=== PATIENT | male | born 1955 | race Caucasian/White ===

== ENCOUNTER → 2017-12-27 08:19 | Outpatient (CLI) | payer OTHER, SELFPAY ==
--- NOTE | 2017-12-27 08:19 | DT_ITS ---
This patient was seen during an EMR downtime December 20, 2017 - December 27, 2017. This patient may have a combination of paper and electronic documentation or all paper documentation. All documentation is viewable within the e-chart portion of [facility] for each patient visit.
[2017-12-27 12:33] LABS: Absolute Lymphocyte Count 1.88 X10^3/ul (0.83-4.51); Basophil# 0.01 X10^3/uL; Basophil% 0.2 % (0-1); Eosinophil# 0.22 X10^3/uL; Eosinophils% 3.3 % (0-5); Hematocrit 44.7 % (40-54); Hemoglobin 15.3 g/dl (13.0-16.5); Lymphocyte # 1.88 X10^3/ul (4.0); Lymphocyte % 28.4 % (19-41); Mean Corp Hgb Conc 34.2 g/gl (32-36); Mean Corpuscular Volume 90.7 fL (80-94); Mean Platelet Vol. 10.1 fl (6.2-12.0); Monocyte% 7.6 % (0-10); Neutrophil % 60.3 % (47-70); Platelet Count 160 K/mm3 (150-450); RBC Distribution Width CV 12.5 % (11.6-14.6); RBC Distribution Width SD 41.2 fl (35.1-43.9); Red Blood Count 4.93 M/mm3 (4.6-6.2); White Blood Count 6.6 K/mm3 (4.4-11.0)
[2017-12-27 12:37] LABS: Vitamin D,25 Hydroxy 22.6 ng/mL (29.95-100.01)
[2017-12-27 12:41] LABS: POSITIVE COUNT NO; POSITIVE DIFFERENTIAL NO; POSITIVE MORPHOLOGY NO
[2017-12-27 12:42] LABS: Erythrocyte Sedimentation Rate 13 mm/hr (0-20)
[2017-12-27 12:43] LABS: Anion Gap 10 (5-15); BUN 18 mg/dL (7-18); BUN/Creat Ratio 17.6 RATIO (10-20); CRP < 2.90 mg/L (0.0-3.0); Calcium,Total 9.1 mg/dL (8.5-10.1); Chloride 104 mmol/L (98-107); Creatinine, Serum 1.02 mg/dL (0.70-1.30); EST Glomerular Filtration Rate 79 mL/min (>60); Est Glom Filt Rate - Afr Amer 96 mL/min (>60); Glucose 120 mg/dL (74-106); Potassium 3.7 mmol/L (3.5-5.1); Rheumatoid Factor < 10.0 IU/mL (<15); Sodium Level 141 mmol/L (136-145); T4 Free Direct 1.02 ng/dL (0.76-1.46); Thyroid Stim Hormone (TSH) 1.21 uIU/mL (0.358-3.74)
[2017-12-31 16:10] LABS: Anti-Centromere B Ab <0.2 AI (0.0-0.9); Anti-Chromatin <0.2 AI (0.0-0.9); Anti-Jo <0.2 AI (0.0-0.9); Anti-Scleroderma-70 AB <0.2 AI (0.0-0.9); RNP Ab 5.7 AI (0.0-0.9); SJOGREN'S Anti-SS-A test < 0.2 AI (0.0-0.9); SJOGREN'S Anti-SS-B test < 0.2 AI (0.0-0.9); Smith Ab <0.2 AI (0.0-0.9)
[2017-12-31 18:30] LABS: Anti-dsDNA Ab <1 IU/mL (0-9)
[2018-01-01 14:17] LABS: CCP IgG Antibodies 4 units (0-19)
== END ==
PROVIDERS: Family Provider Family Medicine; PCP Family Medicine; Visit Provider Family Medicine
DX: I10 Essential (primary) hypertension (principal); E78.5 Hyperlipidemia, unspecified; R73.01 Impaired fasting glucose; M13.0 Polyarthritis, unspecified
CPT/HCPCS: 36415; 80048; 82306; 84439; 84443; 85025; 85652; 86038; 86140; 86200; 86225; 86235; 86431

== ENCOUNTER → 2018-08-22 10:06 | Outpatient (CLI) | payer OTHER, SELFPAY ==
[2018-08-22 12:29] LABS: Protein, Urine (Random) 7.6 mg/dL (<11.9); Protein:Creat Ratio 83 mg/g CRE (0-200)
[2018-08-22 12:42] LABS: Absolute Lymphocyte Count 2.06 X10^3/ul (0.83-4.51); Absolute Neutrophil Count 4.2 X10^3/uL (2.0-7.7); Basophil# 0.02 X10^3/uL; Basophil% 0.3 % (0-1); Eosinophil# 0.18 X10^3/uL; Eosinophils% 2.5 % (0-5); Hematocrit 44.1 % (40-54); Hemoglobin 14.7 g/dl (13.0-16.5); Lymphocyte # 2.06 X10^3/ul (4.0); Lymphocyte % 29.1 % (19-41); Mean Corp Hgb Conc 33.3 g/gl (32-36); Mean Corpuscular Hgb 30.6 pg (27.0-32.0); Mean Corpuscular Volume 91.9 fL (80-94); Monocyte# 0.57 X10^3/uL; Monocyte% 8.1 % (0-10); Neutrophil # 4.23 X10^3/uL (2.7-7.7); Neutrophil % 59.9 % (47-70); Platelet Count 183 K/mm3 (150-450); RBC Distribution Width CV 12.7 % (11.6-14.6); RBC Distribution Width SD 42.5 fl (35.1-43.9); White Blood Count 7.1 K/mm3 (4.4-11.0)
[2018-08-22 12:44] LABS: POSITIVE COUNT NO; POSITIVE DIFFERENTIAL NO; POSITIVE MORPHOLOGY NO
[2018-08-22 12:58] LABS: Vitamin D,25 Hydroxy 49.2 ng/mL (29.95-100.01)
[2018-08-22 13:01] LABS: Erythrocyte Sedimentation Rate 6 mm/hr (0-20)
[2018-08-22 13:07] LABS: ALB/GLOB Ratio 1.1 RATIO (0.9-2.4); AST(SGOT) 26 U/L (15-37); Alanine Aminotransfer ALT/SGPT 48 U/L (16-61); Albumin, Serum 4.1 g/dL (3.2-5.0); Alkaline Phosphatase 57 U/L (45-117); Anion Gap 7 (5-15); BUN 14 mg/dL (7-18); CRP < 2.90 mg/L (0.0-3.0); Calcium,Total 9.1 mg/dL (8.5-10.1); Chloride 105 mmol/L (98-107); EST Glomerular Filtration Rate 81 mL/min (>60); Est Glom Filt Rate - Afr Amer 98 mL/min (>60); Globulin 3.8 g/dL (2.2-4.2); Glucose 81 mg/dL (74-106); Potassium 3.6 mmol/L (3.5-5.1); Protein, Total 7.9 g/dL (6.4-8.2); Sodium Level 140 mmol/L (136-145)
[2018-08-23 05:07] LABS: Complement C3 109 mg/dL (82-167)
[2018-08-23 10:45] LABS: HEPATITIS B SURFACE AG Negative (Negative); Hep B Surface Antibodies Reactive (.); Hep C Antibodies <0.1 s/co ratio (0.0-0.9)
[2018-08-23 12:08] LABS: Anti-Centromere B Ab <0.2 AI (0.0-0.9); Anti-Jo <0.2 AI (0.0-0.9); Anti-Scleroderma-70 AB <0.2 AI (0.0-0.9); RNP Ab 7.2 AI (0.0-0.9); SJOGREN'S Anti-SS-A test < 0.2 AI (0.0-0.9); SJOGREN'S Anti-SS-B test < 0.2 AI (0.0-0.9); Smith Ab <0.2 AI (0.0-0.9)
[2018-08-23 13:07] LABS: ANTINUCLEAR ANTIBODIES DIRECT Positive (Negative); Anti-dsDNA Ab <1 IU/mL (0-9)
== END ==
PROVIDERS: Family Provider Family Medicine; PCP Family Medicine; Referring Provider Internal Medicine Rheumatology; Visit Provider Internal Medicine Rheumatology
DX: M06.4 Inflammatory polyarthropathy (principal); M35.1 Other overlap syndromes; K51.90 Ulcerative colitis, unspecified, without complications; I10 Essential (primary) hypertension; E78.5 Hyperlipidemia, unspecified; J45.909 Unspecified asthma, uncomplicated
CPT/HCPCS: 36415; 80053; 82306; 82570; 84156; 85025; 85652; 86038; 86140; 86160; 86225; 86235; 86706; 86803; 87340

== ENCOUNTER → 2018-10-10 08:25 | Outpatient (CLI) | payer OTHER, SELFPAY ==
[2018-10-10 10:43] LABS: Absolute Lymphocyte Count 1.37 X10^3/ul (0.83-4.51); Absolute Neutrophil Count 2.8 X10^3/uL (2.0-7.7); Basophil# 0.01 X10^3/uL; Basophil% 0.2 % (0-1); Eosinophil# 0.12 X10^3/uL; Eosinophils% 2.5 % (0-5); Hematocrit 44.9 % (40-54); Hemoglobin 15.1 g/dl (13.0-16.5); Lymphocyte # 1.37 X10^3/ul (4.0); Lymphocyte % 28.5 % (19-41); Mean Corp Hgb Conc 33.6 g/gl (32-36); Mean Corpuscular Volume 92.2 fL (80-94); Monocyte# 0.47 X10^3/uL; Monocyte% 9.8 % (0-10); Neutrophil # 2.84 X10^3/uL (2.7-7.7); Platelet Count 170 K/mm3 (150-450); RBC Distribution Width CV 12.9 % (11.6-14.6); RBC Distribution Width SD 43.2 fl (35.1-43.9); Red Blood Count 4.87 M/mm3 (4.6-6.2); White Blood Count 4.8 K/mm3 (4.4-11.0)
[2018-10-10 10:53] LABS: POSITIVE COUNT NO; POSITIVE DIFFERENTIAL NO; POSITIVE MORPHOLOGY NO
[2018-10-10 11:14] LABS: ALB/GLOB Ratio 1.1 RATIO (0.9-2.4); AST(SGOT) 45 U/L (15-37); Alanine Aminotransfer ALT/SGPT 71 U/L (16-61); Albumin, Serum 4.2 g/dL (3.2-5.0); Alkaline Phosphatase 53 U/L (45-117); Anion Gap 8 (5-15); BUN 18 mg/dL (7-18); BUN/Creat Ratio 15.3 RATIO (10-20); Calcium,Total 9.5 mg/dL (8.5-10.1); Chloride 105 mmol/L (98-107); Creatinine, Serum 1.18 mg/dL (0.70-1.30); EST Glomerular Filtration Rate 67 mL/min (>60); Est Glom Filt Rate - Afr Amer 81 mL/min (>60); Globulin 3.7 g/dL (2.2-4.2); Glucose 119 mg/dL (74-106); Potassium 3.5 mmol/L (3.5-5.1); Protein, Total 7.9 g/dL (6.4-8.2); Sodium Level 140 mmol/L (136-145)
== END ==
PROVIDERS: Family Provider Family Medicine; PCP Family Medicine; Referring Provider Internal Medicine Rheumatology; Visit Provider Internal Medicine Rheumatology
DX: M06.4 Inflammatory polyarthropathy (principal); M35.1 Other overlap syndromes; K51.90 Ulcerative colitis, unspecified, without complications; M21.40 Flat foot [pes planus] (acquired), unspecified foot; I10 Essential (primary) hypertension; E78.5 Hyperlipidemia, unspecified; J45.909 Unspecified asthma, uncomplicated
CPT/HCPCS: 36415; 80053; 85025

== ENCOUNTER → 2018-10-14 07:31 | Outpatient (CLI) | payer OTHER, SELFPAY ==
--- NOTE | 2018-10-14 07:32 | US_ITS ---
STUDY: ABDOMINAL ULTRASOUND - RIGHT UPPER QUADRANT REASON FOR VISIT: Male, 62 years old. Elevated liver function tests. TECHNIQUE: Ultrasound evaluation of the right upper quadrant was performed with real-time and static reza-scale imaging. TECHNICAL QUALITY: Limited. Examination limited by bowel gas. COMPARISON: None. FINDINGS: Liver: The liver measures 18.3 cm. There is increased echogenicity consistent with fatty infiltration. The bile ducts are within normal limits. There is hepatic color flow. The direction of portal flow is hepatopetal. There is no demonstrated mass lesion. Gallbladder: Normal distended gallbladder. The gallbladder wall measures 2.8 mm. There is a negative sonographic Garcia's sign. There is no pericholecystic fluid. There are no gallstones. Common Bile Duct (C.B.D.): The common bile duct measures 3.7 mm. Pancreas: There is nonvisualization of the pancreas. Right Kidney: Normal size of the right kidney. The right kidney measures 12.4 x 5.4 x 6.2 cm. Normal renal cortex. The right cortex measures 2.1 cm. There is no demonstrated renal mass or cyst. There is no right hydronephrosis. US/Liver IMPRESSION: 1. Mild hepatomegaly. 2. Fatty infiltration of the liver. 3. No evidence of gallstones. Electronically Signed: Quincy Montalvo MD at 12:29 EDT Tel , Service support ,
== END ==
PROVIDERS: Family Provider Family Medicine; PCP Family Medicine; Referring Provider Internal Medicine Rheumatology; Visit Provider Internal Medicine Rheumatology
DX: R94.5 Abnormal results of liver function studies (principal); M06.4 Inflammatory polyarthropathy; M35.1 Other overlap syndromes; K51.90 Ulcerative colitis, unspecified, without complications; M21.40 Flat foot [pes planus] (acquired), unspecified foot; I10 Essential (primary) hypertension; E78.5 Hyperlipidemia, unspecified; J45.909 Unspecified asthma, uncomplicated
CPT/HCPCS: 76705

== ENCOUNTER → 2018-11-29 07:23 | Outpatient (CLI) | payer OTHER, SELFPAY ==
[2018-11-29 10:17] LABS: Absolute Lymphocyte Count 1.45 X10^3/ul (0.83-4.51); Basophil# 0.01 X10^3/uL; Basophil% 0.2 % (0-1); Eosinophil# 0.22 X10^3/uL; Eosinophils% 4.3 % (0-5); Hematocrit 44.7 % (40-54); Hemoglobin 15.3 g/dl (13.0-16.5); Lymphocyte # 1.45 X10^3/ul (4.0); Lymphocyte % 28.4 % (19-41); Mean Corp Hgb Conc 34.2 g/gl (32-36); Mean Corpuscular Hgb 30.7 pg (27.0-32.0); Mean Corpuscular Volume 89.8 fL (80-94); Monocyte# 0.42 X10^3/uL; Monocyte% 8.2 % (0-10); Neutrophil % 58.7 % (47-70); Platelet Count 177 K/mm3 (150-450); RBC Distribution Width CV 12.4 % (11.6-14.6); RBC Distribution Width SD 40.5 fl (35.1-43.9); Red Blood Count 4.98 M/mm3 (4.6-6.2); White Blood Count 5.1 K/mm3 (4.4-11.0)
[2018-11-29 10:24] LABS: POSITIVE COUNT NO; POSITIVE DIFFERENTIAL NO
[2018-11-29 10:25] LABS: POSITIVE MORPHOLOGY NO
[2018-11-29 10:51] LABS: ALB/GLOB Ratio 1.1 RATIO (0.9-2.4); AST(SGOT) 20 U/L (15-37); Alanine Aminotransfer ALT/SGPT 30 U/L (16-61); Albumin, Serum 3.9 g/dL (3.2-5.0); Alkaline Phosphatase 61 U/L (45-117); Anion Gap 6 (5-15); BUN 17 mg/dL (7-18); BUN/Creat Ratio 16.7 RATIO (10-20); Calcium,Total 9.1 mg/dL (8.5-10.1); Chloride 104 mmol/L (98-107); Creatinine, Serum 1.02 mg/dL (0.70-1.30); EST Glomerular Filtration Rate 79 mL/min (>60); Est Glom Filt Rate - Afr Amer 95 mL/min (>60); Globulin 3.5 g/dL (2.2-4.2); Glucose 106 mg/dL (74-106); Potassium 3.7 mmol/L (3.5-5.1); Protein, Total 7.4 g/dL (6.4-8.2); Sodium Level 139 mmol/L (136-145)
== END ==
PROVIDERS: Family Provider Family Medicine; PCP Family Medicine; Referring Provider Internal Medicine Rheumatology; Visit Provider Internal Medicine Rheumatology
DX: M06.4 Inflammatory polyarthropathy (principal); M35.1 Other overlap syndromes; K51.90 Ulcerative colitis, unspecified, without complications; M21.40 Flat foot [pes planus] (acquired), unspecified foot; I10 Essential (primary) hypertension; E78.5 Hyperlipidemia, unspecified; J45.909 Unspecified asthma, uncomplicated
CPT/HCPCS: 36415; 80053; 85025

== ENCOUNTER → 2020-07-03 10:11 | Outpatient (CLI) | payer OTHER, SELFPAY ==
[2020-07-03 12:44] LABS: Absolute Lymphocyte Count 1.83 X10^3/uL (0.83-4.51); Absolute Neutrophil Count 3.7 X10^3/uL (2.0-7.7); Basophil# 0.03 X10^3/uL; Basophil% 0.5 % (0-1); Eosinophil# 0.23 X10^3/uL; Eosinophils% 3.7 % (0-5); Hematocrit 44.6 % (40-54); Hemoglobin 15.5 g/dL (13.0-16.5); Lymphocyte # 1.83 X10^3/ul (4.0); Mean Corp Hgb Conc 34.8 g/dL (32-36); Mean Corpuscular Hgb 31.3 pg (27.0-32.0); Mean Corpuscular Volume 90.1 fL (80-94); Mean Platelet Vol. 10.2 fl (6.2-12.0); Monocyte# 0.49 X10^3/uL; Monocyte% 7.8 % (0-10); NRBC Flagged by Analyzer 0 % (0-5); Neutrophil # 3.69 X10^3/uL (2.7-7.7); Neutrophil % 58.5 % (47-70); Platelet Count 189 K/mm3 (150-450); RBC Distribution Width SD 39.7 fl (35.1-43.9); Red Blood Count 4.95 M/mm3 (4.6-6.2); White Blood Count 6.3 K/mm3 (4.4-11.0)
[2020-07-03 13:07] LABS: Microalbumin,Random Urine 7.3 mg/L (NO RANGE EST.)
[2020-07-03 13:17] LABS: Vitamin D,25 Hydroxy 40.8 ng/mL
[2020-07-03 13:25] LABS: ALB/GLOB Ratio 1.1 RATIO (0.9-2.4); AST(SGOT) 34 U/L (15-37); Alanine Aminotransfer ALT/SGPT 59 U/L (16-61); Albumin, Serum 4.1 g/dL (3.2-5.0); Alkaline Phosphatase 63 U/L (45-117); Anion Gap 11 (5-15); BUN 17 mg/dL (7-18); BUN/Creat Ratio 15.3 RATIO (10-20); Calcium,Total 9.3 mg/dL (8.5-10.1); Chloride 102 mmol/L (98-107); Cholesterol 228 mg/dL (200); Creatinine, Serum 1.11 mg/dL (0.70-1.30); EST Glomerular Filtration Rate 71 mL/min (>60); Est Glom Filt Rate - Afr Amer 86 mL/min (>60); Globulin 3.7 g/dL (2.2-4.2); Glucose 113 mg/dL (74-106); High Density Lipoprotein 49 mg/dL; Potassium 3.4 mmol/L (3.5-5.1); Protein, Total 7.8 g/dL (6.4-8.2); Sodium Level 139 mmol/L (136-145); T4 Free Direct 1.18 ng/dL (0.76-1.46); Thyroid Stim Hormone (TSH) 0.64 uIU/mL (0.358-3.74); Triglycerides 442 mg/dL
== END ==
PROVIDERS: PCP Family Medicine; Visit Provider Family Medicine
DX: I10 Essential (primary) hypertension (principal); K76.0 Fatty (change of) liver, not elsewhere classified; E78.5 Hyperlipidemia, unspecified; E55.9 Vitamin D deficiency, unspecified
CPT/HCPCS: 36415; 80053; 80061; 82043; 82306; 82570; 84439; 84443; 85025

== ENCOUNTER → 2022-03-13 | Outpatient (CLI) | payer MEDICARE, OTHER, SELFPAY ==
[2022-03-13 15:01] LABS: Absolute Neutrophil Count 3.6 X10^3/uL (2.0-7.7); Basophil# 0.01 X10^3/uL; Basophil% 0.2 % (0-1); Eosinophil# 0.16 X10^3/uL; Eosinophils% 2.7 % (0-5); Hematocrit 42.9 % (40-54); Hemoglobin 14.2 g/dL (13.0-16.5); Lymphocyte % 29.9 % (19-41); Mean Corp Hgb Conc 33.1 g/dL (32-36); Mean Corpuscular Volume 93.7 fL (80-94); Mean Platelet Vol. 9.9 fl (6.2-12.0); Monocyte# 0.49 X10^3/uL; Monocyte% 8.1 % (0-10); NRBC Flagged by Analyzer 0 % (0-5); Neutrophil # 3.56 X10^3/uL (2.7-7.7); Neutrophil % 58.9 % (47-70); Platelet Count 179 K/mm3 (150-450); RBC Distribution Width CV 12.2 % (11.6-14.6); RBC Distribution Width SD 41.9 fl (35.1-43.9); Red Blood Count 4.58 M/mm3 (4.6-6.2)
[2022-03-13 15:18] LABS: Vitamin D,25 Hydroxy 52.3 ng/mL
[2022-03-13 15:24] LABS: ALB/GLOB Ratio 1.1 RATIO (0.9-2.4); AST(SGOT) 28 U/L (15-37); Alanine Aminotransfer ALT/SGPT 50 U/L (16-61); Albumin, Serum 3.8 g/dL (3.2-5.0); Alkaline Phosphatase 64 U/L (45-117); Anion Gap 6 (5-15); BUN 16 mg/dL (7-18); BUN/Creat Ratio 15.8 RATIO (10-20); Calcium,Total 8.9 mg/dL (8.5-10.1); Chloride 105 mmol/L (98-107); Creatinine, Serum 1.01 mg/dL (0.70-1.30); EST Glomerular Filtration Rate 79 mL/min (>60); Est Glom Filt Rate - Afr Amer 95 mL/min (>60); Globulin 3.6 g/dL (2.2-4.2); Glucose 121 mg/dL (74-106); Potassium 3.7 mmol/L (3.5-5.1); Protein, Total 7.4 g/dL (6.4-8.2); Sodium Level 138 mmol/L (136-145)
== END | disposition home or self-care (01) ==
PROVIDERS: PCP Family Medicine; Referring Provider Family Medicine; Visit Provider Family Medicine
DX: I10 Essential (primary) hypertension (principal); E55.9 Vitamin D deficiency, unspecified; E78.5 Hyperlipidemia, unspecified
CPT/HCPCS: 36415; 80053; 82306; 85025

== ENCOUNTER 2022-08-04 05:23 | Day surgery (SDC) | payer MEDICARE, OTHER, SELFPAY ==
[2022-08-04 06:03] VITALS: BP 149/98; PULSE 65; RESP 16; TEMP 36.6; O2SAT 97; BMI 33.8
[2022-08-04] MEDS: Lactated Ringers 1,000 ML 15 ML IV (06:08)
--- NOTE | 2022-08-04 06:30 | COLBX_PTH ---
PATIENT: FREDDY BOSS LOC: EN U#:[id number] AGE/SX: 66/M ROOM: RE08/04/[address]: Dr. Matthew Edge DO : 1955 BED: DIS: 08/04/2022 SPEC #: [id number] RECD: 08/04/22 11:50 STATUS: JEF REDestin #: [id number] ODALIS: 08/04/22 06:[address]: Matthew Edge DEPT: SURGICAL PATHOLOGY RECD BY: Kaitlynn Zheng ENTERED: 08/04/22 12:45 SP TYPE: COLON BX OTHR DR: Dr. Mayur Trivedi MD Tissues: Cecum, NOS Procedures: Surgery Specimen Level IV HEADER OPERATION: Colonoscopy with biopsy (MAC) PRE-OP DIAGNOSIS: Screening, ulcerative colitis TISSUE SUBMITTED: Ileoanal polyp biopsy MICROSCOPIC DIAGNOSIS Ileoanal polyp, biopsy: Consistent with fragments of inflammatory polyp. SJ:betsy 08/05/2022 MICROSCOPIC DESCRIPTION Slides are reviewed. GROSS DESCRIPTION Received in fixative is one container labeled with the patient's name and designated ileoanal polyp biopsy. The specimen consists of multiple irregular fragments of light richter soft tissue that in aggregate measure 1 x 0.6 x 0.1 cm. The specimen is totally submitted in one cassette. / SJ:betsy 08/04/2022 TC: CPT: 46882
--- NOTE | 2022-08-04 06:30 | PCM.HP.BLA ---
History and Physical Date of Admission: 08/04/22 FREDDY BOSS, is a 66 M who presents to the office today for Initial consult. Brendon established with this clinic 05.29.22. He is due for screening colonoscopy; history of UC s/p total colectomy in 2007 with subsequent intermittent diarrhea r/t dietary triggers that is managed with loperamide 2mg BID and trigger avoidance. Previously attempted medications include prednisone and Remicade; there were many other medications attempted but he does not recall what they were. Last colonoscopy was approximately 5 years prior. Fatty liver as seen on US with historical elevated LFT of AST 45/ALT 71 in 2019; they then normalized. Triglycerides H442 and cholesterol H228. US RUQ 3.29.19 for elevated LFT noting liver measurement 18.3cm with fatty infiltration. ROS Const Constitutional: No anorexia, fatigue, fever(s), weight change or sleep problems Eyes Eyes: No change in vision ENT ENT: No abnormal hearing, difficulty swallowing, mouth lesions, tongue swelling or throat swelling Resp Respiratory: No cough or shortness of breath Cardio Cardiology: No chest pain at rest, chest pain with exertion, shortness of breath or dyspnea on exertion Gastro GI: No difficulty swallowing Genitourinary Male: No difficulty urinating or burning urination Musc Musculoskeletal: No joint pain, joint swelling, muscle weakness or decreased muscle mass Skin Skin: No hair loss in leg, yellowing of the eye, itchy eyes, rash, skin ulcer or skin swelling Neuro Neurology: No abnormal hearing, abnormal movements, confusion, unsteady gait/balance or memory loss Psych Psychiatric: No anxiety, No confusion and No memory loss Endo Endocrine: No fatigue or weight change Aller/Imm Allergy/Immunologic: No itchy eyes, throat swelling or tongue swelling Tommy/Lymp Hematologic/Lymphatic: No easy bleeding, easy bruising or enlarged lymph nodes Exam Const General: cooperative and comfortable Nutritional Appearance: average body habitus and well nourished [facility] Head: normal to inspection Ears: hearing grossly normal bilaterally Nose: external nose normal Face and sinus: normal facial exam Mouth: oral mucosae normal Throat: posterior oropharynx normal Eyes General: appearance normal, both eyes and all related structures Neck Neck: normal visual inspection Chest Chest palpation & inspection: normal inspection of the chest and normal palpation of entire chest wall Resp Effort & Inspection: normal respiratory effort Auscultation: Bilateral: Clear to Auscultation Cardio Palpation: normal PMI Rate: regular rate Rhythm: regular rhythm GI Inspection: normal to inspection Auscultation: normal bowel sounds Percussion: normal to percussion Palpation: no hepatosplenomegaly Skin General: no rashes or lesions noted Neuro General: patient alert Extrem General: normal to inspection Psych Affect: normal affect Quality Reporting Tobacco Screening ([facility]) Smoking Status: Former smoker Assessment and Plan Assessment and Plan (1) Screening for colon cancer: ?Status:?Chronic (2) Ulcerative colitis: ?Status:?Chronic ?Plan: Also colitis status post total colectomy with ileoanal anastomosis.? He also has a J-pouch.? He gets about 2 or 3 episodes of pouchitis and weekly basis.? At this time he is on antibiotic therapy.? He has not been on scheduled mesalamine for anti-inflammatories for his pouch.? He does not take any vitamin supplements.? He does not drink any? alcohol.? He does not take any aspirin products.? He will undergo flexible sigmoidoscopy evaluation of his pouch.? He was explained alternatives, risk, benefits, sepsis, perforation . I have examined the patient and the H&P has been reviewed. There are no clinical changes since date of exam.
[2022-08-04 06:51] VITALS: BP 103/51; BP 149/98; PULSE 61; RESP 17; TEMP 36.5; O2SAT 97
[2022-08-04 06:55] VITALS: BP 101/63; BP 149/98; PULSE 62; RESP 16; O2SAT 96
[2022-08-04 07:00] VITALS: BP 115/81; BP 149/98; PULSE 58; RESP 16; O2SAT 96
--- NOTE | 2022-08-04 07:03 | OP.CCLET_ITS ---
08/04/2022 Mayur Trivedi Re : Flexible Sigmoidoscopy procedure for Mika Tan Dear Shikha This procedure was performed on Thursday, August 04, 2022. My impressions and recommendations are as follows: Impressions : - No specimens collected. Recommendations : - Cipro (ciprofloxacin) 500 mg PO BID for 10 weeks. - Flagyl (metronidazole) 500 mg PO TID for 10 days. My findings are described in the full procedure note, which is enclosed. If I can be of further assistance, please feel free to contact me at . Sincerely, Matthew Edge, 08/04/2022 7:02:44 AM This report has been signed electronically.
--- NOTE | 2022-08-04 07:03 | OP.FLEXSIG_ITS ---
Patient Name: Mika Tan Procedure Date: 08/04/2022 6:17 AM Date of : 1955 Age: 66 Procedure: Flexible Sigmoidoscopy Indications: High risk colon cancer surveillance: Ulcerative pancolitis Providers: Matthew Edge DO Referring MD: Matthew Edge DO Medicines: Monitored Anesthesia Care Patient Profile: This is a 66 year old male. Refer to note in patient chart for documentation of history and physical. Last Colonoscopy: 5 years ago. Complications: No immediate complications. Procedure: Pre-Anesthesia Assessment: - Prior to the procedure, a History and Physical was performed, and patient medications and allergies were reviewed. The patient is competent. The risks and benefits of the procedure and the sedation options and risks were discussed with the patient. All questions were answered and informed consent was obtained. Patient identification and proposed procedure were verified by the physician in the pre-procedure area. Mental Status Examination: alert and oriented. Airway Examination: normal oropharyngeal airway and neck mobility. Respiratory Examination: clear to auscultation. CV Examination: normal. Prophylactic Antibiotics: The patient does not require prophylactic antibiotics. Prior Anticoagulants: The patient has taken no previous anticoagulant or antiplatelet agents. ASA Grade Assessment: II - A patient with mild systemic disease. After reviewing the risks and benefits, the patient was deemed in satisfactory condition to undergo the procedure. The anesthesia plan was to use monitored anesthesia care (MAC). Immediately prior to administration of medications, the patient was re-assessed for adequacy to receive sedatives. The heart rate, respiratory rate, oxygen saturations, blood pressure, adequacy of pulmonary ventilation, and response to care were monitored throughout the procedure. The physical status of the patient was re-assessed after the procedure. After obtaining informed consent, the endoscope was passed under direct vision. Throughout the procedure, the patient's blood pressure, pulse, and oxygen saturations were monitored continuously. The Colonoscope was introduced through the anus and advanced to 60 cm from the anal verge. After obtaining informed consent, the endoscope was passed under direct vision. Throughout the procedure, the patient's blood pressure, pulse, and oxygen saturations were monitored continuously.The flexible sigmoidoscopy was accomplished without difficulty. The patient tolerated the procedure well. The quality of the bowel preparation was good. Scope In: 6:39:13 AM Scope Out: 6:45:19 AM Total Procedure Duration Time 0 hours 6 minutes 6 seconds Findings: The perianal and digital rectal examinations were normal. Inflammation characterized by congestion (edema), erosions, erythema, friability and aphthous ulcerations was found. The anus, the anastomosis and the rectal pouch were spared. This was moderate in severity, and when compared to previous examinations, the findings are new. Biopsies were taken with a cold forceps for histology. Verification of patient identification for the specimen was done. Estimated blood loss was minimal. Impression: - No specimens collected. Recommendation: - Cipro (ciprofloxacin) 500 mg PO BID for 10 weeks. - Flagyl (metronidazole) 500 mg PO TID for 10 days. Procedure Code(s): --- Professional --- 33795, Sigmoidoscopy, flexible; with biopsy, single or multiple CPT copyright 2017 [employer]. All rights reserved. The codes documented in this report are preliminary and upon manufacturing lab technician review may be revised to meet current compliance requirements. Matthew Edge DO 08/04/2022 7:02:44 AM This report has been signed electronically. Number of Addenda: 0 Note Initiated On: 08/04/2022 6:17 AM
[2022-08-04 07:05] VITALS: BP 115/81; BP 149/98; PULSE 60; RESP 16; TEMP 37.2; O2SAT 96
[2022-08-04 07:20] VITALS: BP 149/98
== END 2022-08-04 07:28 | disposition home or self-care (01) ==
LOC: EN 05:24 → AC 05:25
PROVIDERS: PCP Family Medicine; Referring Provider Internal Medicine Gastroenterology; Visit Provider Internal Medicine Gastroenterology
PROC: 0DJD8ZZ Inspection of Lower Intestinal Tract, Via Natural or Artificial Opening Endoscopic (ICD-10-PCS; CPT 45378; principal; 2022-08-04 06:25)
DX: Z12.11 Encounter for screening for malignant neoplasm of colon (principal); K63.5 Polyp of colon; Z87.19 Personal history of other diseases of the digestive system; Z87.891 Personal history of nicotine dependence; Z90.49 Acquired absence of other specified parts of digestive tract
CPT/HCPCS: 45331; 88305; J7120; J2405

== ENCOUNTER → 2022-08-25 | Outpatient (CLI) | payer MEDICARE, OTHER, SELFPAY ==
[2022-08-25 10:38] LABS: Erythrocyte Sedimentation Rate 4 mm/hr (0-20)
[2022-08-25 13:32] LABS: CRP < 2.90 mg/L (0.0-3.0)
== END | disposition home or self-care (01) ==
PROVIDERS: PCP Family Medicine; Referring Provider Internal Medicine Gastroenterology; Visit Provider Internal Medicine Gastroenterology
DX: K51.90 Ulcerative colitis, unspecified, without complications (principal)
CPT/HCPCS: 36415; 85652; 86140

== ENCOUNTER 2023-03-14 16:12 | Emergency (ER) | payer MEDICARE, OTHER, SELFPAY ==
[2023-03-14 16:13] VITALS: BP 165/108; PULSE 92; RESP 18; TEMP 35.5; O2SAT 99; BMI 32.8
[2023-03-14 16:33] LABS: Absolute Lymphocyte Count 2.38 X10^3/uL (0.83-4.51); Absolute Neutrophil Count 4.3 X10^3/uL (2.0-7.7); Basophil# 0.04 X10^3/uL; Basophil% 0.5 % (0-1); Eosinophil# 0.22 X10^3/uL; Eosinophils% 2.9 % (0-5); Hematocrit 44.6 % (40-54); Hemoglobin 15.2 g/dL (13.0-16.5); Lymphocyte # 2.38 X10^3/ul (0.83-4.51); Lymphocyte % 31.3 % (19-41); Mean Corp Hgb Conc 34.1 g/dL (32-36); Mean Corpuscular Hgb 31.1 pg (27.0-32.0); Mean Corpuscular Volume 91.4 fL (80-94); Mean Platelet Vol. 10.3 fl (6.2-12.0); Monocyte# 0.65 X10^3/uL; Monocyte% 8.6 % (0-10); NRBC Flagged by Analyzer 0 % (0-5); Neutrophil # 4.28 X10^3/uL (2.7-7.7); Neutrophil % 56.3 % (47-70); Platelet Count 187 K/mm3 (150-450); RBC Distribution Width SD 39.8 fl (35.1-43.9); Red Blood Count 4.88 M/mm3 (4.6-6.2); White Blood Count 7.6 K/mm3 (4.4-11.0)
[2023-03-14 16:41] LABS: Bedside Glucose 318 mg/dL (74-106)
[2023-03-14 16:45] LABS: Anion Gap 8 (5-15); BUN 22 mg/dL (7-18); BUN/Creat Ratio 16.9 RATIO (10-20); Calcium,Total 9.9 mg/dL (8.5-10.1); Chloride 101 mmol/L (98-107); EST Glomerular Filtration Rate 59 mL/min (>60); Est Glom Filt Rate - Afr Amer 71 mL/min (>60); Estimated Creatinine Clearance 57.71 ml/min; Glucose 347 mg/dL (74-106); Potassium 3.7 mmol/L (3.5-5.1); Sodium Level 135 mmol/L (136-145)
[2023-03-14] MEDS: 0.9% Normal Saline 1,000 ML 999 ML IV (18:06)
[2023-03-14 18:10] LABS: Bacteria 0 SEEN /hpf (None Seen); Mucous, Urine 0 SEEN /hpf (<or=2+); Squamous Epithelial Cells - UA 0 SEEN /hpf (0-5); White Blood Cells 0 SEEN /hpf (0-5)
[2023-03-14 18:37] LABS: Color, Urine Yellow (Yellow); Glucose, Dipstick 1000 mg/dl (Normal); Ketone-Dipstick 5 mg/dl (Negative); Leukocyte Esterase-Dipstick Negative /ul (Negative); Nitrite-Dipstick Negative (Negative); Occult Blood-Urine 25 /ul (Negative); Protein-Dipstick 15 mg/dl (Negative); Specific Gravity, Urine 1.025 (1.002-1.030); Urine Bilirubin Dipstick Negative (Negative); Urine Clarity Clear (Clear); Urine Urobilinogen Normal (Normal)
[2023-03-14 18:54] LABS: Red Blood Cells-Urine 0-5 SEEN /hpf (0-5)
--- NOTE | 2023-03-14 19:03 | EX.ED.DYSGE1 ---
HPI <ARYA Suárez - Last Filed: 03/14/23 19:45> History of Present Illness Chief Complaint: Hyperglycemia Narrative Narrative: Patient is a 67-year-old male with history of J-pouch, hypertension who presents to the emergency department for elevated blood sugar. Patient states that he has been having diarrhea more frequently over the last couple days, this is concerning for pouchitis. Patient states he checked his blood sugar today because has been urinating a lot and it was over 400. He is here for evaluation. Patient states he had something similar 8 years ago however his blood sugar went back to normal. He has not take anything for his blood sugar greater than 8 years. Patient denies any vision change, increased thirst. However he does endorse increased urination. 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 Arthritis Chronic diarrhea ED (erectile dysfunction) Fatty liver Former smoker History of stress test HTN (hypertension) Hyperlipidemia Impaired fasting blood sugar Incisional hernia Pouchitis Restless legs Screening for colon cancer Ulcerative colitis Vitamin D deficiency Wears dentures Wears glasses Home Medications diltiazem HCl 180 mg capsule,24 hr,extended release 180 mg PO DAILY 03/19/22 [History Last Taken Unknown] loperamide 2 mg capsule 2 mg PO Q6H PRN Diarrhea 03/19/22 [History Last Taken Unknown] losartan 100 mg-hydrochlorothiazide 25 mg tablet 1 tab PO DAILY 03/19/22 [History Last Taken Unknown] sildenafil 50 mg tablet (Viagra) 50 mg PO DAILY PRN Erectile Dysfunction 03/19/22 [History Last Taken Unknown] ascorbic acid (vitamin C) 1,000 mg capsule,extended release 1 cap PO DAILY 07/29/22 [History Last Taken Unknown] cholecalciferol (vitamin D3) 50 mcg (2,000 unit) tablet (Vitamin D3) 150 mcg PO DAILY 07/29/22 [History Last Taken Unknown] omega-3 fatty acids 1,000 mg PO DAILY 07/29/22 [History Last Taken Unknown] zinc 50 mg capsule 50 mg PO DAILY 07/29/22 [History Last Taken Unknown] ciprofloxacin HCl 500 mg tablet 500 mg PO Q12H #20 tabs 08/04/22 [Rx Last Taken Unknown] Lactobac no.2-Bifidobac no.1-S. thermo 112.5 billion cell capsule (VSL#3) 1 cap PO BID #60 caps 08/25/22 [Rx Last Taken Unknown] metformin 500 mg tablet 500 mg PO BID #60 tabs 03/14/23 [Rx Last Taken Unknown] metronidazole 500 mg tablet 500 mg PO Q8H 7 days #21 tabs 03/14/23 [Rx Last Taken Unknown] Allergy/AdvReac Type Severity Reaction Status Date / Time Penicillins [PCN] Allergy Hives Verified 03/14/23 16:13 Family History Father H/O colectomy Liver transplant status Mother Cancer Surgical History S/P total colectomy Social History Smoking Status: Former smoker alcohol intake: current ROS <ARYA Suárez - Last Filed: 03/14/23 19:45> ROS ED ROS Narrative Constitutional: Negative for fever, chills, weight loss, weakness Eyes: Negative for vision loss, vision change, double vision ENT: Negative for any sore throat, ear pain, congestion Cardiovascular: Negative for any chest pain, tightness, palpitations Respiratory: Negative for any cough, sputum production, hemoptysis, dyspnea, dyspnea on exertion, orthopnea Gastrointestinal: Negative for any abdominal pain, nausea, vomiting, diarrhea, constipation, blood in stool, blood in vomit : Negative for any dysuria, retention, blood in urine. Positive for urine frequency Muscle skeletal: Negative for any muscle joint pain, stiffness, myalgias, arthralgias, neck pain, back pain Neurological: Negative for any headache, syncope, numbness or tingling, dizziness Skin: Negative for any rashes, lumps, itching, abrasions, lacerations Psychiatric: Negative for any depression, anxiety, stress, suicidal ideation, homicidal ideation Hematologic: Negative for any easy bruising, excessive bruising, easy bleeding Allergies: Negative for any eczema, hives, rash EXAM <ARYA Suárez - Last Filed: 03/14/23 19:45> Physical Exam Narrative Exam Narrative: Vital signs reviewed. HEET: Head normocephalic atraumatic, TMs clear bilaterally. Posterior pharynx is clear, moist mucous membranes. Nares clear bilaterally. Neck: Supple with no lymphadenopathy or tenderness. No signs of meningismus, negative jolt sign. Cardiac: Regular rate and rhythm no murmurs gallops or rubs, equal peripheral pulses bilaterally. Respiratory: Lungs clear to auscultation bilaterally. No chest tenderness. Abdomen: Soft, nontender, nondistended. No abdominal bruit or pulsatile masses. No hepatosplenomegaly Extremities: No peripheral edema, no signs of gross trauma or deformity. Active full range of motion of all extremities. Neuro: Cranial nerves II through XII intact, no focal neurological deficits. Skin: Clean dry and intact with no rash, purpura, petechiae, vesicles or pustules. Backs/flank: No CVA tenderness, no midline spinal tenderness, no deformity. Psych: Normal mood and affect. No SI, HI or acute psychosis. Const Vital Signs: 03/14/23 16:13 03/14/23 16:35 03/14/23 19:07 Temperature 95.9 F L Temperature Source Temporal Pulse Rate 92 61 Respiratory Rate 18 16 Respiratory Effort Normal Respiratory Pattern Normal Blood Pressure 165/108 H 127/76 H Blood Pressure Mean 127 93 Pulse Ox 99 98 Oxygen Delivery Method Room Air Room Air <Masood Downs MD - Last Filed: 03/14/23 22:06> Physical Exam Const Vital Signs: 03/14/23 16:13 03/14/23 16:35 03/14/23 19:07 Temperature 95.9 F L Temperature Source Temporal Pulse Rate 92 61 Respiratory Rate 18 16 Respiratory Effort Normal Respiratory Pattern Normal Blood Pressure 165/108 H 127/76 H Blood Pressure Mean 127 93 Pulse Ox 99 98 Oxygen Delivery Method Room Air Room Air MDM <ARYA Suárez - Last Filed: 03/14/23 19:45> [facility] Lab Data Labs: Laboratory Results - last 24 hr 03/14/23 03/14/23 03/14/23 16:18 16:22 18:00 WBC 7.6 RBC 4.88 Hgb 15.2 Hct 44.6 MCV 91.4 MCH 31.1 MCHC 34.1 RDW Std Deviation 39.8 RDW Coeff of Michelle 12.0 Plt Count 187 MPV 10.3 Immature Gran % (Auto) 0.400 Neut % (Auto) 56.3 Lymph % (Auto) 31.3 Zavala % (Auto) 8.6 Eos % (Auto) 2.9 Baso % (Auto) 0.5 Absolute Neuts (auto) 4.3 Absolute Lymphs (auto) 2.38 Nucleated RBC % 0 Sodium 135 L Potassium 3.7 Chloride 101 Carbon Dioxide 26.0 Anion Gap 8 BUN 22 H Creatinine 1.30 Estim Creat Clear Calc 57.71 Est GFR (MDRD) Af Amer 71 Est GFR (MDRD) Non-Af 59 L BUN/Creatinine Ratio 16.9 Glucose 347 H Calcium 9.9 Urine Color Yellow Urine Clarity Clear Urine pH 5.0 Ur Specific [place] 1.025 Urine Protein 15 H Urine Glucose (UA) 1000 H Urine Ketones 5 H Urine Occult Blood 25 H Urine Nitrite Negative Urine Bilirubin Negative Urine Urobilinogen Normal Ur Leukocyte Esterase Negative Urine RBC 0-5 SEEN Urine WBC 0 SEEN Ur Squamous Epith Cells 0 SEEN Urine Bacteria 0 SEEN Urine Mucus 0 SEEN POC Glucose 318 H 03/14/23 19:41 WBC RBC Hgb Hct MCV MCH MCHC RDW Std Deviation RDW Coeff of Michelle Plt Count MPV Immature Gran % (Auto) Neut % (Auto) Lymph % (Auto) Zavala % (Auto) Eos % (Auto) Baso % (Auto) Absolute Neuts (auto) Absolute Lymphs (auto) Nucleated RBC % Sodium Potassium Chloride Carbon Dioxide Anion Gap BUN Creatinine Estim Creat Clear Calc Est GFR (MDRD) Af Amer Est GFR (MDRD) Non-Af BUN/Creatinine Ratio Glucose Calcium Urine Color Urine Clarity Urine pH Ur Specific [place] Urine Protein Urine Glucose (UA) Urine Ketones Urine Occult Blood Urine Nitrite Urine Bilirubin Urine Urobilinogen Ur Leukocyte Esterase Urine RBC Urine WBC Ur Squamous Epith Cells Urine Bacteria Urine Mucus POC Glucose 238 H Treatment and Re-Evaluation :: Patient appears generally well, patient appears nontoxic, vital signs are stable. Patient presents to the emergency department for elevated blood sugar. Patient's laboratory values show a normal CBC, patient's chemistries show sodium 135, BUN of 22, patient's blood glucose was 347. Patient was given 1 L normal saline. Patient does have history of pouchitis which he states is secondary to this with diarrhea and is requesting Flagyl. Patient will be given a prescription of Flagyl 3 times a day for 7 days. Patient also be given a prescription for metformin however he will start that tomorrow. He does have a close follow-up appointment with his PCP in 2 days. Patient will receive 1 L normal saline and have recheck blood sugar to ensure it is going down. On reevaluation, the patient's blood sugar was 238. At this time, I believe the patient stable for discharge. He was given 1 Flagyl today, he will follow-up with his PCP in 2 days. He will be given a prescription for metformin. He will start this tomorrow if his blood sugars over 250. All questions were answered, patient structured to maintain hydration. Patient is happy the plan of care, there is no evidence of any infection, ACS. Patient stable for discharge. <Masood Downs MD - Last Filed: 03/14/23 22:06> MDM MDM Narrative Medical decision making narrative: Dr. Downs: I have personally performed a face to face assessment of the patient and have reviewed the JACQUI Note. I performed a substantive portion of the visit including all aspects of the following. My sabillon findings include: History is elevated blood sugar in 400s. History of pouchitis. Exam is afebrile. Vital signs noted. Regular rate and rhythm. Abdomen soft nontender without erythema. Medical Decision Making: Patient states he usually receives Flagyl whenever he has pouchitis and feels he has it again. His blood sugars usually elevate with this. Check labs. IV fluids. He has an appointment with nurse practitioner on Wednesday. He will be given prescriptions for both Flagyl and metformin to start and follow-up with his primary care provider. Return instructions were reviewed. Disposition is discharged home in stable condition. Other additions or changes: [None] Lab Data Attestation: I reviewed the patient's lab results. Labs: Laboratory Results - last 24 hr 03/14/23 03/14/23 03/14/23 16:18 16:22 18:00 WBC 7.6 RBC 4.88 Hgb 15.2 Hct 44.6 MCV 91.4 MCH 31.1 MCHC 34.1 RDW Std Deviation 39.8 RDW Coeff of Michelle 12.0 Plt Count 187 MPV 10.3 Immature Gran % (Auto) 0.400 Neut % (Auto) 56.3 Lymph % (Auto) 31.3 Zavala % (Auto) 8.6 Eos % (Auto) 2.9 Baso % (Auto) 0.5 Absolute Neuts (auto) 4.3 Absolute Lymphs (auto) 2.38 Nucleated RBC % 0 Sodium 135 L Potassium 3.7 Chloride 101 Carbon Dioxide 26.0 Anion Gap 8 BUN 22 H Creatinine 1.30 Estim Creat Clear Calc 57.71 Est GFR (MDRD) Af Amer 71 Est GFR (MDRD) Non-Af 59 L BUN/Creatinine Ratio 16.9 Glucose 347 H Calcium 9.9 Urine Color Yellow Urine Clarity Clear Urine pH 5.0 Ur Specific [place] 1.025 Urine Protein 15 H Urine Glucose (UA) 1000 H Urine Ketones 5 H Urine Occult Blood 25 H Urine Nitrite Negative Urine Bilirubin Negative Urine Urobilinogen Normal Ur Leukocyte Esterase Negative Urine RBC 0-5 SEEN Urine WBC 0 SEEN Ur Squamous Epith Cells 0 SEEN Urine Bacteria 0 SEEN Urine Mucus 0 SEEN POC Glucose 318 H 03/14/23 19:41 WBC RBC Hgb Hct MCV MCH MCHC RDW Std Deviation RDW Coeff of Michelle Plt Count MPV Immature Gran % (Auto) Neut % (Auto) Lymph % (Auto) Zavala % (Auto) Eos % (Auto) Baso % (Auto) Absolute Neuts (auto) Absolute Lymphs (auto) Nucleated RBC % Sodium Potassium Chloride Carbon Dioxide Anion Gap BUN Creatinine Estim Creat Clear Calc Est GFR (MDRD) Af Amer Est GFR (MDRD) Non-Af BUN/Creatinine Ratio Glucose Calcium Urine Color Urine Clarity Urine pH Ur Specific [place] Urine Protein Urine Glucose (UA) Urine Ketones Urine Occult Blood Urine Nitrite Urine Bilirubin Urine Urobilinogen Ur Leukocyte Esterase Urine RBC Urine WBC Ur Squamous Epith Cells Urine Bacteria Urine Mucus POC Glucose 238 H Discharge Plan Triage Chief Complaint: Hyperglycemia ED Midlevel Provider: Felix Sigala ED Provider: Masood Downs Dx/Rx/DC Orders Clinical Impression: Hyperglycemia Instructions: Blood Sugar Check Steps, ED Diabetic Hyperglycemia Prescriptions: New metronidazole 500 mg tablet 500 mg PO Q8H 7 Days Qty: 21 0RF metformin 500 mg tablet 500 mg PO BID Qty: 60 0RF No Action diltiazem HCl 180 mg capsule,extended release 24 hr 180 mg PO DAILY loperamide 2 mg capsule 2 mg PO Q6H PRN (Reason: Diarrhea) losartan-hydrochlorothiazide 100-25 mg tablet 1 tab PO DAILY sildenafil [Viagra] 50 mg tablet 50 mg PO DAILY PRN (Reason: Erectile Dysfunction) Rx Instructions: administer 30 minutes to 4 hours before activity VSL#3 112.5 billion cell capsule 1 cap PO BID Qty: 60 3RF Vitamin C 1,000 mg Capsule, Extended Release 1 cap PO DAILY Fish Oil Capsule 1,000 mg PO DAILY zinc 50 mg Capsule 50 mg PO DAILY cholecalciferol (vitamin D3) [Vitamin D3] 50 mcg (2,000 unit) Tablet 150 mcg PO DAILY ciprofloxacin HCl 500 mg tablet 500 mg PO Q12H Qty: 20 0RF Primary Care Provider: Ronda Donato Referrals: Ronda Donato, [employer] [Primary Care Provider] - Activity Restrictions/Additional Instructions: Please follow-up in 2 days Disposition Disposition: Home, Self Care Discharge Date/Time: 03/14/23 19:53
[2023-03-14 19:07] VITALS: BP 127/76; PULSE 61; RESP 16; O2SAT 98
[2023-03-14] MEDS: metroNIDAZOLE 500 MG Tablet PO (19:42)
[2023-03-14 19:59] LABS: Bedside Glucose 238 mg/dL (74-106)
== END 2023-03-14 19:53 | disposition home or self-care (01) ==
PROVIDERS: Nurse Practitioner; Emergency Provider Emergency Medicine; PCP Nurse Practitioner Family; Visit Provider Emergency Medicine
DX: R73.9 Hyperglycemia, unspecified (principal); I10 Essential (primary) hypertension; Z87.891 Personal history of nicotine dependence; E78.5 Hyperlipidemia, unspecified
CPT/HCPCS: 80048; 81001; 82962; 85025; 99282; J7030; A4216

== ENCOUNTER → 2024-03-21 | Outpatient (CLI) | payer MEDICARE, OTHER, SELFPAY ==
[2024-03-21 12:25] LABS: Absolute Lymphocyte Count 1.76 X10^3/uL (0.83-4.51); Absolute Neutrophil Count 3.8 X10^3/uL (2.0-7.7); Basophil# 0.02 X10^3/uL; Basophil% 0.3 % (0-1); Eosinophil# 0.21 X10^3/uL; Eosinophils% 3.4 % (0-5); Hematocrit 43.8 % (40-54); Hemoglobin 15.2 g/dL (13.0-16.5); Lymphocyte # 1.76 X10^3/ul (0.83-4.51); Lymphocyte % 28.3 % (19-41); Mean Corp Hgb Conc 34.7 g/dL (32-36); Mean Corpuscular Hgb 31.1 pg (27.0-32.0); Mean Corpuscular Volume 89.6 fL (80-94); Mean Platelet Vol. 11.1 fl (6.2-12.0); Monocyte% 6.4 % (0-10); NRBC Flagged by Analyzer 0 % (0-5); Neutrophil # 3.81 X10^3/uL (2.7-7.7); Neutrophil % 61.3 % (47-70); Platelet Count 184 K/mm3 (150-450); RBC Distribution Width CV 11.9 % (11.6-14.6); RBC Distribution Width SD 38.9 fl (35.1-43.9); Red Blood Count 4.89 M/mm3 (4.6-6.2); White Blood Count 6.2 K/mm3 (4.4-11.0)
[2024-03-21 13:19] LABS: ALB/GLOB Ratio 1.1 RATIO (0.9-2.4); AST(SGOT) 34 U/L (15-37); Alanine Aminotransfer ALT/SGPT 51 U/L (16-61); Albumin, Serum 3.9 g/dL (3.2-5.0); Alkaline Phosphatase 69 U/L (45-117); Anion Gap 11 (5-15); BUN 19 mg/dL (7-18); Calcium,Total 9.7 mg/dL (8.5-10.1); Chloride 100 mmol/L (98-107); Cholesterol 199 mg/dL (200); EST Glomerular Filtration Rate 79 mL/min (>60); Est Glom Filt Rate - Afr Amer 96 mL/min (>60); Globulin 3.7 g/dL (2.2-4.2); Glucose 351 mg/dL (74-106); High Density Lipoprotein 48 mg/dL; PSA,Total - Annual Screen 0.68 ng/mL (0.00-4.00); Potassium 3.7 mmol/L (3.5-5.1); Protein, Total 7.6 g/dL (6.4-8.2); Sodium Level 134 mmol/L (136-145); Triglycerides 377 mg/dL; Very Low Density Lipoprotein 75 mg/dL (5-40)
== END | disposition home or self-care (01) ==
LOC: BFHLAB 09:04
PROVIDERS: PCP Nurse Practitioner Family; Referring Provider Nurse Practitioner Family; Visit Provider Nurse Practitioner Family
DX: Z12.5 Encounter for screening for malignant neoplasm of prostate (principal); I10 Essential (primary) hypertension; E78.5 Hyperlipidemia, unspecified
CPT/HCPCS: 36415; 80053; 80061; 84153; 85025; G0103

== ENCOUNTER → 2025-03-27 | Outpatient (CLI) | payer MEDICARE, OTHER, SELFPAY ==
[2025-03-27 13:14] LABS: Hematocrit 44.6 % (40-54); Hemoglobin 14.8 g/dL (13.0-16.5); Immature Granulocytes Count 0.010 X10^3/uL (0.0-0.0); Mean Corp Hgb Conc 33.2 g/dL (32-36); Mean Corpuscular Volume 94.3 fL (80-94); Mean Platelet Vol. 10.4 fl (6.2-12.0); NRBC Flagged by Analyzer 0 % (0-5); Platelet Count 170 K/mm3 (150-450); RBC Distribution Width CV 12.4 % (11.6-14.6); RBC Distribution Width SD 43.3 fl (35.1-43.9); Red Blood Count 4.73 M/mm3 (4.6-6.2); White Blood Count 6.4 K/mm3 (4.4-11.0)
[2025-03-27 13:56] LABS: AST(SGOT) 30 U/L (<=37); Alanine Aminotransfer ALT/SGPT 32 U/L (<=46); Albumin, Serum 4.4 g/dL (3.4-4.8); Alkaline Phosphatase 71 U/L (40-129); Anion Gap 9 (5-15); BUN 20 mg/dL (4-19); BUN/Creat Ratio 17.5 RATIO (10-20); Calcium,Total 10.2 mg/dL (7.6-11.0); Carbon Dioxide 25.7 mmol/L (21.0-32.0); Chloride 105 mmol/L (98-108); Cholesterol 208 mg/dL (<=200); Globulin 2.9 g/dL (2.2-4.2); Glucose 112 mg/dL (70-99); Low Density Lipoprotein Calc. 117 mg/dL; PSA,Total - Annual Screen 0.61 ng/mL (0.02-4.00); Potassium 5.2 mmol/L (3.3-5.1); Triglycerides 137 mg/dL; Very Low Density Lipoprotein 27 mg/dL (5-40); cholesterol:hdl ratio screen 3.25
== END | disposition home or self-care (01) ==
LOC: BFHLAB 09:02
PROVIDERS: PCP Nurse Practitioner Family; Visit Provider Nurse Practitioner Family
DX: E78.5 Hyperlipidemia, unspecified (principal); I10 Essential (primary) hypertension; Z12.5 Encounter for screening for malignant neoplasm of prostate
CPT/HCPCS: 36415; 80053; 80061; 84153; 85025; G0103